=== PATIENT | male | born 1990 | race African-American/Black ===

== ENCOUNTER 2020-03-18 06:51 | Emergency (ER) | payer OTHER ==
[~2020-03-18] VITALS: Ht 188 cm; Wt 87.1 kg
[~2020-03-18 06:51] MED LIST: FLEXERIL PO; NAPROSYN500 MG PO
[2020-03-18 07:29] LABS: HEMATOCRIT 44.4 % (42.0-52.0); HEMOGLOBIN 14.7 gm/dL (14.0-18.0); MCH 28.9 pg (26.0-34.0); MCV 87.6 fL (80.0-100.0); RBC 5.07 mil/uL (4.50-6.00); RDW 14.3 % (10.5-14.5); WBC 5.9 thou/uL (4.0-11.0)
[2020-03-18 07:39] LABS: ANION GAP 12 mmol/L (7-16); BUN 9 mg/dL (7-18); CHLORIDE 104 mmol/L (98-107); CO2 25 mmol/L (21-32); CREATININE 1.1 mg/dL (0.7-1.3); GLUCOSE 118 mg/dL (74-106); POTASSIUM 3.3 mmol/L (3.5-5.1); SODIUM 141 mmol/L (136-145)
[2020-03-18 07:46] LABS: TROPONIN-I <0.06 ng/mL (<0.06)
[2020-03-18 08:10] VITALS: BP 122/74
--- NOTE | 2020-03-18 12:07 | EKG ---
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
== END 2020-03-18 08:10 | disposition home or self-care (01) ==
LOC: ER 06:51
PROVIDERS: Emergency Medicine
DX: R07.89 Other chest pain (principal)